=== PATIENT | male | born 1980 | race Caucasian/White ===

== ENCOUNTER 2022-06-06 16:39 | Emergency (ER) | payer SELFPAY ==
[2022-06-06] MEDS ORDERED: Sodium Chloride 0.9% 1,000 ML IV SCH (17:30)
[2022-06-06] MEDS ORDERED: Sodium Chloride 0.9% 10 ML Syringe FLUSH PRN (17:34)
[2022-06-06] MEDS ORDERED: Tamsulosin 0.4 MG Cap.ER PO ONE (18:38)
== END 2022-06-06 20:12 | disposition home or self-care (01) ==
LOC: JD.ED 16:39
DX: N20.1 Calculus of ureter (principal); Z88.0 Allergy status to penicillin; Z79.899 Other long term (current) drug therapy
CPT/HCPCS: 36415; 74176; 80053; 81001; 85025; 96360; 99284; A9270; J3490; J7030